=== PATIENT | female | born 1985 | race Caucasian/White ===

== ENCOUNTER 2024-04-19 11:10 | Inpatient (IN) | payer OTHER ==
[2024-04-19 11:38] VITALS: BMI 21.9
[2024-04-19] MEDS ORDERED: POLYETHYLENE GLYCOL (HEALTHYLAX) 3350 17 GM PACKET PO PRN (12:24)
[2024-04-19] MEDS ORDERED: guaiFENesin 600 MG TABLET.ER (FP) PO PRN (12:24)
[2024-04-19] MEDS ORDERED: MAG HYDROX/AL HYDROX/SIMETH 30 ML UNIT-DOSE CUP PO PRN (12:24)
[2024-04-19] MEDS ORDERED: BENZOCAINE/MENTHOL (CHLORASEPTIC ) LOZENGE MM PRN (12:24)
[2024-04-19] MEDS ORDERED: IBUPROFEN 400 MG TABLET (FP) PO PRN (12:24)
[2024-04-19] MEDS ORDERED: NALOXONE (NARCAN) HCL 4 MG/0.1 ML SPRAY NS PRN (12:24)
[2024-04-19] MEDS ORDERED: ACETAMINOPHEN 325 MG TABLET (FP) PO PRN (12:24)
[2024-04-19] MEDS ORDERED: LOPERAMIDE HCL 2 MG CAPSULE PO PRN (12:24)
[2024-04-19] MEDS ORDERED: MAGNESIUM HYDROX 2400MG/30ML ORAL SUSPENSION 30 ML CUP PO PRN (12:24)
[2024-04-19] MEDS ORDERED: P-EPHED 60MG/TRIPROLIDI 2.5MG TABLET PO PRN (12:24)
[2024-04-19] MEDS ORDERED: ONDANSETRON *ODT* 4 MG TABLET SL PRN (12:24)
[2024-04-19] MEDS ORDERED: BENZONATATE 200 MG CAPSULE PO PRN (12:24)
[2024-04-19] MEDS ORDERED: DICYCLOMINE HCL 10 MG CAPSULE PO PRN (12:24)
[2024-04-19] MEDS ORDERED: BISMUTH SUBSALICYLATE 524 MG/30 ML PO PRN (12:24)
[2024-04-19] MEDS ORDERED: methaDONE HCL 10 MG TABLET (FOR DETOX USE ONLY) ONE (14:15)
[2024-04-19] MEDS: methaDONE HCL 10 MG TABLET (FOR DETOX USE ONLY) PO ONE (14:20)
[2024-04-19] MEDS: NICOTINE POLACRILEX 2 MG GUM BUC PRN (15:42)
[2024-04-19] MEDS: METHOCARBAMOL 500 MG TABLET PO PRN (17:03)
[2024-04-19] MEDS: MELATONIN 5 MG TABLETS PO SCH (21:33)
[2024-04-19] MEDS: THIAMINE 100 MG TABLET PO SCH (21:34)
[2024-04-20] MEDS: PRENATAL VITAMINS W/ FOLIC ACID TABLET (FP) PO SCH (10:05)
[2024-04-20] MEDS: BUPRENORPHINE/NALOXONE 0.5 MG/0.125 MG FILM SL SCH (10:10)
[2024-04-20] MEDS ORDERED: methaDONE HCL 40 MG DISPERSABLE TABLET PO ONE (12:15)
[2024-04-20 13:22] LABS: HEMATOCRIT 39.9 % (32.4-45.2); HEMOGLOBIN 13.1 GM/dL (10.7-15.3); MCH 26.6 pg (25.7-33.7); MEAN CELL VOLUME 80.8 fl (80-96); PLATELET COUNT 222 10^3/uL (134-434); RBC 4.94 M/mm3 (3.60-5.2); RDW 13.6 % (11.6-15.6); WHITE BLOOD COUNT 9.4 K/mm3 (4.0-10.0)
[2024-04-20 14:13] LABS: BLOOD UREA NITROGEN 11.2 mg/dL (7-18); CALCIUM 9.5 mg/dL (8.5-10.1)
[2024-04-20 14:19] LABS: BILIRUBIN,TOTAL 0.3 mg/dL (0.2-1); TOT PROT 6.7 g/dl (6.4-8.2)
[2024-04-20 14:24] LABS: ALBUMIN 3.3 g/dl (3.4-5.0)
[2024-04-20] MEDS: hydrOXYzine PAMOATE 25 MG CAPSULE (FP) PO PRN (14:24)
[2024-04-20] MEDS: diazePAM 5 MG TABLET PO PRN (22:49)
[2024-04-21] MEDS: methaDONE 40 MG, methaDONE 20 MG PO ONE (09:47)
[2024-04-21] MEDS ORDERED: BUPRENORPHINE/NALOXONE 2 MG/0.5 MG FILM PACKET SL SCH (10:00)
[2024-04-21] MEDS ORDERED: methaDONE HCL 10 MG TABLET (FOR DETOX USE ONLY) PO ONE (10:00)
[2024-04-21] MEDS: IBUPROFEN 600 MG TABLET (FP) PO PRN (21:46)
[2024-04-22] MEDS: NICOTINE POLACRILEX 2 MG LOZENGE BC PRN (00:51)
[2024-04-22] MEDS: methaDONE 40 MG, methaDONE 30 MG PO ONE (09:25)
[2024-04-22] MEDS ORDERED: BUPRENORPHINE/NALOXONE 4 MG/1 MG FILM PACKET SL SCH (10:00)
[2024-04-22] MEDS: VITAMINS A AND D TOPICAL OINTMENT TP SCH (11:26)
[2024-04-22] MEDS: cloNIDine HCL 0.1 MG TABLET PO PRN (13:58)
[2024-04-22] MEDS: hydrOXYzine PAMOATE 50 MG CAPSULE (FP) PO PRN (15:34)
[2024-04-23 06:50] VITALS: RESP 16
[2024-04-23] MEDS: methaDONE HCL 40 MG DISPERSABLE TABLET PO ONE (09:38)
[2024-04-23] MEDS ORDERED: BUPRENORPHINE/NALOXONE 8 MG/2 MG FILM PACKET SL SCH (10:00)
[2024-04-23] MEDS ORDERED: methaDONE HCL 10 MG TABLET (FOR DETOX USE ONLY) PO ONE (10:00)
[2024-04-24] MEDS: methaDONE 80 MG, methaDONE 10 MG PO ONE (09:28)
[2024-04-24] MEDS ORDERED: BUPRENORPHINE/NALOXONE 8 MG/2 MG FILM PACKET SL SCH (10:00)
[2024-04-24] MEDS: NALOXONE (NYS OPIOID OVERDOSE PROGRAM) 4 MG/0.1 ML SPRAY NS ONE (16:25)
[2024-04-24] MEDS: MELATONIN 5 MG TABLETS PO SCH (21:48)
[2024-04-24] MEDS: SUVOREXANT 10 MG TABLET PO PRN (21:50)
[2024-04-25] MEDS: methaDONE 80 MG, methaDONE 10 MG PO ONE (06:12)
[2024-04-25 09:23] VITALS: BP 113/69; PULSE 68; TEMP 97.6
== END 2024-04-25 10:40 | disposition home or self-care (01) | DRG 773 ==
LOC: YASAS 11:10 → Y6N 12:52
PROVIDERS: ADMIT Allergy & Immunology; ATTEND Surgery
PROC: HZ2ZZZZ Detoxification Services for Substance Abuse Treatment (ICD-10-PCS; principal; 2024-04-19)
DX: F11.23 Opioid dependence with withdrawal (principal); F14.20 Cocaine dependence, uncomplicated; F17.210 Nicotine dependence, cigarettes, uncomplicated; J45.909 Unspecified asthma, uncomplicated
CPT/HCPCS: 36415; 80053; 80305; 81025; 85027; 86780; 93005; 93010